=== PATIENT | male | born 1960 | race Caucasian/White ===

== ENCOUNTER → 2017-02-10 | Outpatient (CLI) | payer OTHER ==
--- NOTE | 2017-02-10 14:46 | PCVCIMAG ---
APPROVED REPORT Study performed: 02/10/2017 13:07:23 EXAM: Comprehensive 2D, Doppler, and color-flow Echocardiogram Patient Location: Echo lab Status: routine BSA: 2.06 HR: 80 bpmBP: 130/85 mmHg Rhythm: NSR Other Information Study Quality: Good Risk Factors: Cardiac Risk Factors: Hyperlipidemia, HTN Indications Hypertension/HDD 2D Dimensions LVEF(%): 61.28 (>50%) IVSd: 13.99 (7-11mm)LVOT Diam: 19.55 (18-24mm) LVDd: 35.66 mm PWd: 12.22 (7-11mm)Ascending Ao: 35.10 (22-36mm) LVDs: 24.21 (25-40mm) Left Atrium: 31.34 (27-40mm) Aortic Root: 31.09 mm LV Single Plane 4CH: 63.54 % LV Single Plane 2CH: 50.79 %Montoya's LVEF: 57.17 % Biplane EF: 58.7 % Volumes Left Atrial Volume (Systole) Single Plane 4CH: 34.33 mLSingle Plane 2CH: 43.47 mL LA ESV Index: 19.00 mL/m2 Aortic Valve AoV Peak Joseph.: 1.43 m/s AO Peak Gr.: 8.20 mmHgLVOT Max P.93 mmHg LVOT Max V: 1.11 m/s CLARISSA Vmax: 2.32 cm2 TDI Medial E' Joseph.: 0.07 m/s Lateral E' Joseph.: 0.08 m/s Pulmonary Valve PV Peak Gr.: 3.04 mmHg Pulmonary Vein P Vein S: 0.63 m/sP Vein A: 0.27 m/s P Vein D: 0.40 m/sP Vein A Dur.: 93.4 msec P Vein S/D Ratio: 1.58 Left Ventricle The left ventricle is normal size. There is normal LV segmental wall motion. There is normal left ventricular wall thickness. Left ventricular systolic function is normal. The left ventricular ejection fraction is within the normal range. LVEF is 60-65%. The left ventricular diastolic function is normal. Right Ventricle The right ventricle is normal size. The right ventricular systolic function is normal. Atria The left atrium size is normal. The right atrium size is normal. Aortic Valve The aortic valve is normal in structure. No aortic regurgitation is present. There is no aortic valvular stenosis. Mitral Valve The mitral valve is normal in structure. There is no mitral valve regurgitation noted. No evidence of mitral valve stenosis. Tricuspid Valve The tricuspid valve is normal in structure. There is no tricuspid valve regurgitation noted. Pulmonic Valve The pulmonary valve is normal in structure. There is no pulmonic valvular regurgitation. Great Vessels The aortic root is normal in size. IVC is normal in size and collapses with >50% inspiration Pericardium There is no pericardial effusion. <Conclusion> The left ventricle is normal size. LVEF is 60-65%. The left ventricular diastolic function is normal. The right ventricle is normal size. The left atrium size is normal. There is no aortic valvular stenosis. There is no mitral valve regurgitation noted. There is no tricuspid valve regurgitation noted. There is no pericardial effusion.
== END | disposition home or self-care (01) ==
LOC: PCVCIMAG 12:22
PROVIDERS: ATTEND Internal Medicine Cardiovascular Disease
DX: I25.10 Atherosclerotic heart disease of native coronary artery without angina pectoris (principal); I10 Essential (primary) hypertension; R94.31 Abnormal electrocardiogram [ECG] [EKG]; E78.01 Familial hypercholesterolemia; Z87.898 Personal history of other specified conditions; Z79.899 Other long term (current) drug therapy
CPT/HCPCS: 80061; 93005; 93306; G0463

== ENCOUNTER → 2018-11-10 | Outpatient (CLI) | payer BC, OTHER ==
--- NOTE | 2018-11-10 17:26 | PCVCIMAG ---
APPROVED REPORT Study performed: 11/10/2018 14:24:16 EXAM: Comprehensive 2D, Doppler, and color-flow Echocardiogram Patient Location: Echo lab Room #: [id number]: routine BSA: 2.11 HR: 67 bpmBP: 118/80 mmHg Rhythm: NSR Other Information Study Quality: Adequate Risk Factors: Cardiac Risk Factors: HTN, Hyperlipidemia Indications CAD 2D Dimensions IVSd: 12.09 (7-11mm)LVOT Diam: 20.00 (18-24mm) LVDd: 43.41 mm PWd: 12.43 (7-11mm)Ascending Ao: 33.11 (22-36mm) LVDs: 26.44 (25-40mm) Left Atrium: 35.16 (27-40mm) Aortic Root: 32.17 mm Volumes Left Atrial Volume (Systole) Single Plane 4CH: 45.55 mLSingle Plane 2CH: 55.53 mL LA ESV Index: 24.00 mL/m2 Aortic Valve AoV Peak Joseph.: 1.52 m/s AO Peak Gr.: 9.19 mmHgLVOT Max P.55 mmHg LVOT Max V: 1.07 m/s CLARISSA Vmax: 2.18 cm2 Mitral Valve E/A Ratio: 1.0 MV Decel. Time: 255.81 ms MV E Max Joseph.: 0.72 m/s MV A Joseph.: 0.74 m/s IVRT: 65.74 ms TDI E/Lateral E': 9.00E/Medial E': 14.40 Medial E' Joseph.: 0.05 m/s Lateral E' Joseph.: 0.08 m/s Pulmonary Valve PV Peak Joseph.: 0.89 m/sPV Peak Gr.: 3.18 mmHg Pulmonary Vein P Vein S: 0.75 m/sP Vein A: 0.27 m/s P Vein D: 0.51 m/sP Vein A Dur.: 103.8 msec P Vein S/D Ratio: 1.47 Tricuspid Valve RAP Estimate: 7.00 mmHg Left Ventricle The left ventricle is normal size. There is normal LV segmental wall motion. Mild concentric left ventricular hypertrophy. Left ventricular systolic function is normal. The left ventricular ejection fraction is within the normal range. LVEF is 65-70%. Right Ventricle The right ventricle is normal size. The right ventricular systolic function is normal. Atria The left atrium size is normal. The right atrium size is normal. Aortic Valve The aortic valve is normal in structure. No aortic regurgitation is present. There is no aortic valvular stenosis. Mitral Valve The mitral valve is normal in structure. Trace to mild mitral regurgitation. No evidence of mitral valve stenosis. Tricuspid Valve The tricuspid valve is normal in structure. Trace tricuspid regurgitation. Unable to assess PA pressure. Pulmonic Valve The pulmonary valve is normal in structure. There is no pulmonic valvular regurgitation. Great Vessels The aortic root is normal in size. The ascending aorta is normal in size. IVC is normal in size and collapses >50% with inspiration. Pericardium There is no pericardial effusion. <Conclusion> The left ventricle is normal size. Mild concentric left ventricular hypertrophy. LVEF is 65-70%. The right ventricle is normal size. The left atrium size is normal. The aortic valve is normal in structure. Trace to mild mitral regurgitation. Trace tricuspid regurgitation. Unable to assess PA pressure. The aortic root is normal in size. There is no pericardial effusion.
== END | disposition home or self-care (01) ==
LOC: PCVCIMAG 14:17
PROVIDERS: ATTEND Internal Medicine Cardiovascular Disease
DX: I34.0 Nonrheumatic mitral (valve) insufficiency (principal); I10 Essential (primary) hypertension; E78.5 Hyperlipidemia, unspecified; E78.00 Pure hypercholesterolemia, unspecified
CPT/HCPCS: 93306